=== PATIENT | female | born 1970 | race Caucasian/White ===

== ENCOUNTER 2017-05-30 10:43 | Emergency (ER) | payer BC, OTHER ==
[2017-05-30 10:49] VITALS: BP 127/77; PULSE 70; TEMP 98.2; BMI 33.3
[2017-05-30] MEDS ORDERED: ONDANSETRON *ODT* 4 MG TABLET SL ONE (12:37)
[2017-05-30] MEDS ORDERED: RANITIDINE HCL 150 MG TABLET (FP) PO ONE (12:37)
[2017-05-30] MEDS ORDERED: ONDANSETRON *ODT* 4 MG TABLET ONE (12:40)
[2017-05-30] MEDS ORDERED: RANITIDINE HCL 150 MG TABLET (FP) ONE (12:40)
--- NOTE | 2017-05-30 12:44 | PDOC ---
History of Present Illness - General Chief Complaint: Nausea Stated Complaint: FLU LIKE SYMPTOMS Time Seen by Provider: 05/30/17 12:29 History Source: Patient Exam Limitations: No Limitations - History of Present Illness Initial Comments: CHIEF COMPLAINT: 46 y/o afebrile female with PMH HTN c/o nausea, feeling " under the weather" since yesterday. HISTORY OF PRESENT ILLNESS: The patient's son has Flu A&B, her daughter in law has the flu and her has a stomach virus. The patient states she has been feeling "queasy" with a few episodes of diarrhea yesterday and today. She denies fever, body aches, TAVAREZ, neck pain, CP, SOB, runny nose, nasal congestion, abdominal pain, vomiting. Vital signs on arrival are within normal limits. REVIEW OF SYSTEMS: GENERAL/CONSTITUTIONAL: +ill feeling. No fever/chills. No weakness. No weight change. No body aches. HEAD, EYES, EARS, NOSE AND THROAT: No change in vision. No ear pain or discharge. No sore throat. CARDIOVASCULAR: No chest pain or shortness of breath. RESPIRATORY: No cough, wheezing, or hemoptysis. GASTROINTESTINAL: +nausea and diarrhea. No vomiting or abdominal pain. GENITOURINARY: No dysuria, frequency, or change in urination. MUSCULOSKELETAL: No joint or muscle swelling or pain. No neck or back pain. SKIN: No rash or easy bruising. NEUROLOGIC: No headache, vertigo, loss of consciousness, or loss of sensation. PHYSICAL EXAM: GENERAL: The patient is awake, alert, and fully oriented, non toxic but slightly ill appearing. HEAD: Normal with no signs of trauma. ENT: Pupils equal, round and reactive to light, extraocular movements intact, sclera anicteric, conjunctiva clear. Neck supple. LUNGS: Clear to auscultation bilaterally. Normal excursion. No respiratory distress or use of accessory muscles. CV: RRR, S1/S2, no MRG. Cap refill < 2 sec. ABDOMEN: Soft, non-distended, non-tender even to deep palpation, no hepatomegaly or splenomegaly, no masses. EXTREMITIES: Normal range of motion, no edema. NEUROLOGICAL: Normal speech, normal gait. CN II-XII grossly intact. PSYCH: Normal mood, normal affect. SKIN: Warm, dry, normal turgor, no rashes or lesions noted. Past History - Past Medical History Allergies/Adverse Reactions: Allergies Allergy/AdvReac Type Severity Reaction Status Date / Time No Known Drug Allergies Allergy Verified 05/30/17 10:45 Home Medications: Ambulatory Orders Enalapril Maleate [Vasotec -] 20 mg PO DAILY 04/23/12 Naproxen [Naprosyn -] 500 mg PO BID #14 tablet 12/27/15 Ondansetron [Zofran Odt -] 4 mg SL TID #6 od.tablet 05/30/17 COPD: No DVT: No HTN: Yes - Immunization History Immunization Up to Date: Yes - Suicide/Smoking/Psychosocial Hx Smoking Status: Yes Smoking History: Never smoked Have you smoked in the past 12 months: Yes Number of Cigarettes Smoked Daily: 10 If you are a former smoker, when did you quit?: 02/21/13 Information on smoking cessation initiated: No 'Breaking Loose' booklet given: 02/28/13 Hx Alcohol Use: No Drug/Substance Use Hx: No Substance Use Type: None Hx Substance Use Treatment: No *Physical Exam - Vital Signs Last Vital Signs Temp Pulse Resp BP Pulse Ox 98.2 F 70 16 127/77 99 05/30/17 10:46 05/30/17 10:46 05/30/17 10:46 05/30/17 10:46 05/30/17 10:46 Medical Decision Making - Medical Decision Making A/P: 46 y/o afebrile female with nausea and diarrhea since yesterday with multiple sick contacts with the flu. The pt had a hysterectomy therefore no hcg is needed. Plan is as follows: 1. Influenza 2. PO zantac 3. sl zofran INfluenza A&B - negative Gave patient results. MOst likely coming down with a stomach virus like her has. Will send rx for zofran. Suggested plenty of fluids, rest and bland diet until symptoms resolve. Instructed her to return to the ER with any worsening or concerning symptoms. The patient verbalizes understanding of all instructions, has no further questions and is awaiting discharge. *DC/Admit/Observation/Transfer Diagnosis at time of Disposition: Nausea Diarrhea Qualifiers: Diarrhea type: unspecified type Qualified Code(s): R19.7 - Diarrhea, unspecified - Discharge Dispostion Disposition: HOME Condition at time of disposition: Good - Referrals - Patient Instructions Printed Discharge Instructions: DI for Nausea -- Adult, [place] Diet, Diarrhea Additional Instructions: Discharge Instructions: -Please take zofran if needed for nausea -Eat bland diet until feeling better -Drink plenty of fluids -Return to the ER with any worsening or concerning symptoms - Post Discharge Activity Forms/Work/School Notes: Back to Work
== END 2017-05-30 13:54 | disposition home or self-care (01) ==
LOC: JERFT 10:43
DX: R11.0 Nausea (principal); I10 Essential (primary) hypertension
CPT/HCPCS: 87804; 99281-25

== ENCOUNTER 2021-02-01 11:51 | Emergency (ER) | payer BC, OTHER ==
[2021-02-01 12:01] VITALS: BMI 34.7
[2021-02-01] MEDS ORDERED: KETOROLAC TROMETHAMINE 15 MG/ML VIAL IVPUSH ONE (12:50)
[2021-02-01] MEDS ORDERED: KETOROLAC TROMETHAMINE 15 MG/ML VIAL ONE (13:07)
[2021-02-01 13:22] LABS: HEMATOCRIT 39.8 % (32.4-45.2); HEMOGLOBIN 13.3 GM/dL (10.7-15.3); LYMPH % 27.5 % (8-40); MCHC 33.5 g/dl (32.0-36.0); MEAN CELL VOLUME 83.6 fl (80-96); MEAN PLT VOLUME 10.7 fl (7.5-11.1); MONO % 8.4 % (3.8-10.2); NEUT % 62.1 % (42.8-82.8); PLATELET COUNT 183 10^3/uL (134-434); RBC 4.76 M/mm3 (3.60-5.2); RDW 13.4 % (11.6-15.6)
[2021-02-01 13:53] LABS: ALBUMIN 3.8 g/dl (3.4-5.0)
[2021-02-01 13:55] LABS: BILIRUBIN,TOTAL 0.8 mg/dL (0.2-1); BLOOD UREA NITROGEN 9.6 mg/dL (7-18)
[2021-02-01 13:56] LABS: CREATININE 0.7 mg/dL (0.55-1.3); TOT PROT 8.2 g/dl (6.4-8.2)
[2021-02-01] MEDS ORDERED: LACTATED RINGERS SOLUTION 1000 ML INFUS.BAG IV ONE (14:20)
[2021-02-01 14:54] LABS: EPI CELLS >36 /uL (0-25.1); HYALINE CASTS 6 /uL (0-3.1); URINE APPEARANCE CLOUDY; URINE BACTERIA >9,000 /uL (0-1359); URINE BILIRUBIN NEGATIVE (NEGATIVE); URINE COLOR DK YELLOW; URINE GLUCOSE (UA) NEGATIVE (NEGATIVE); URINE KETONE NEGATIVE (NEGATIVE); URINE LEUK ESTERASE TRACE (NEGATIVE); URINE NITRITE POSITIVE (NEGATIVE); URINE PROTEIN TRACE (NEGATIVE); URINE RBC 13 /uL (0-23.9); URINE WBC 40 /uL (0-25.8)
[2021-02-01 17:32] VITALS: TEMP 98
[2021-02-01] MEDS ORDERED: CIPROFLOXACIN 400 MG/D5W 400 MG/200 ML IVPB IVPB ONE (17:40)
[2021-02-01 20:07] VITALS: BP 131/86; PULSE 87
== END 2021-02-01 20:08 | disposition home or self-care (01) ==
LOC: JER 11:51
PROC: 3E0233Z Introduction of Anti-inflammatory into Muscle, Percutaneous Approach (ICD-10-PCS; principal; 2021-02-01)
PROC: 3E0333Z Introduction of Anti-inflammatory into Peripheral Vein, Percutaneous Approach (ICD-10-PCS; 2021-02-01)
PROC: 3E0233Z Introduction of Anti-inflammatory into Muscle, Percutaneous Approach (ICD-10-PCS; 2021-02-01)
DX: K57.92 Diverticulitis of intestine, part unspecified, without perforation or abscess without bleeding (principal)
CPT/HCPCS: 36415; 74177-TC; 80053; 81003; 84703; 85025; 87086; 87186; 93005; 93010; 99285-25

== ENCOUNTER 2022-01-22 15:11 | Emergency (ER) | payer BC ==
[2022-01-22 15:29] VITALS: BP 132/80; TEMP 97.9; BMI 36.2
[2022-01-22] MEDS ORDERED: ACETAMINOPHEN 1000 MG/100 ML BAG IVPB ONE (16:28)
[2022-01-22] MEDS ORDERED: ONDANSETRON 4 MG/2 ML VIAL IVPUSH ONE ×2 (16:28→17:01)
[2022-01-22] MEDS ORDERED: SODIUM CHLORIDE 0.9% 500 ML INFUS.BAG IV ONE (16:28)
[2022-01-22] MEDS ORDERED: ONDANSETRON 4 MG/2 ML VIAL ONE ×2 (16:36→17:04)
[2022-01-22] MEDS ORDERED: ACETAMINOPHEN INJECTION 100 ML IVPB ONE (16:36)
[2022-01-22 16:57] LABS: BASO % 0.6 % (0-2.0); EOS % 1.9 % (0-4.5); HEMATOCRIT 37.2 % (32.4-45.2); HEMOGLOBIN 12.3 GM/dL (10.7-15.3); LYMPH % 34.3 % (8-40); MCH 27.3 pg (25.7-33.7); MCHC 33.1 g/dl (32.0-36.0); MEAN CELL VOLUME 82.3 fl (80-96); MONO % 9.4 % (3.8-10.2); NEUT % 53.8 % (42.8-82.8); PLATELET COUNT 166 10^3/uL (134-434); RBC 4.52 M/mm3 (3.60-5.2); RDW 13.7 % (11.6-15.6); WHITE BLOOD COUNT 7.3 K/mm3 (4.0-10.0)
[2022-01-22] MEDS ORDERED: morphine CARPU-JECT 4 MG/1 ML DISP.SYRIN IVPUSH ONE (17:01)
[2022-01-22] MEDS ORDERED: morphine SULFATE 4 MG/ML VIAL ONE (17:04)
[2022-01-22 17:17] VITALS: PULSE 70; RESP 15
[2022-01-22 17:24] LABS: CALCIUM 9.1 mg/dL (8.5-10.1)
[2022-01-22 17:25] LABS: ALBUMIN 3.5 g/dl (3.4-5.0); BLOOD UREA NITROGEN 13.1 mg/dL (7-18)
[2022-01-22 17:28] LABS: CREATININE 0.7 mg/dL (0.55-1.3)
[2022-01-22 17:29] LABS: EPI CELLS 7 /uL (0-25.1); HYALINE CASTS 6 /uL (0-3.1); TOT PROT 7.6 g/dl (6.4-8.2); URINE APPEARANCE CLEAR; URINE BACTERIA 415 /uL (0-1359); URINE BILIRUBIN NEGATIVE (NEGATIVE); URINE COLOR YELLOW; URINE GLUCOSE (UA) NEGATIVE (NEGATIVE); URINE KETONE NEGATIVE (NEGATIVE); URINE LEUK ESTERASE 2+ (NEGATIVE); URINE NITRITE NEGATIVE (NEGATIVE); URINE PROTEIN NEGATIVE (NEGATIVE); URINE WBC 383 /uL (0-25.8)
[2022-01-22 17:30] LABS: BILIRUBIN,TOTAL 0.4 mg/dL (0.2-1)
[2022-01-22] MEDS ORDERED: POTASSIUM CHLORIDE TABS 20 MEQ TABLET.ER (FP) PO ONE ×2 (17:38→17:43)
[2022-01-22 18:17] LABS: URINE RBC 29.1 /uL (0-23.9)
[2022-01-22] MEDS ORDERED: metroNIDAZOLE 250 MG TABLET PO ONE (20:08)
[2022-01-22] MEDS ORDERED: CIPROFLOXACIN 500 MG TABLET (RESTRICTED TO ID) PO ONE (20:08)
[2022-01-22] MEDS ORDERED: metroNIDAZOLE 250 MG TABLET ONE (20:21)
== END 2022-01-22 20:36 | disposition home or self-care (01) ==
LOC: JER 15:11
PROC: 3E0333Z Introduction of Anti-inflammatory into Peripheral Vein, Percutaneous Approach (ICD-10-PCS; principal; 2022-01-22)
PROC: 3E033NZ Introduction of Analgesics, Hypnotics, Sedatives into Peripheral Vein, Percutaneous Approach (ICD-10-PCS; 2022-01-22)
PROC: 3E033GC Introduction of Other Therapeutic Substance into Peripheral Vein, Percutaneous Approach (ICD-10-PCS; 2022-01-22)
PROC: 3E033GC Introduction of Other Therapeutic Substance into Peripheral Vein, Percutaneous Approach (ICD-10-PCS; 2022-01-22)
DX: K57.92 Diverticulitis of intestine, part unspecified, without perforation or abscess without bleeding (principal)
CPT/HCPCS: 36415; 74177-TC; 80053; 81003; 85025; 87086; 87186; 99285-25; Q9967